=== PATIENT | male | born 2000 | race Caucasian/White ===

== ENCOUNTER 2021-08-23 13:14 | Emergency (ER) | payer OTHER ==
[~2021-08-23] VITALS: Ht 182.9 cm; Wt 90.7 kg
[2021-08-23 13:30] VITALS: BP_SYST 133
[2021-08-23] MEDS ORDERED: IBUP-1969 PO (14:31)
[2021-08-23 15:12] VITALS: BP_SYST 128
== END 2021-08-23 15:15 | disposition home or self-care (01) ==
LOC: SED 13:14
DX: S93.401A Sprain of unspecified ligament of right ankle, initial encounter (principal); F17.210 Nicotine dependence, cigarettes, uncomplicated; Z71.6 Tobacco abuse counseling; W10.8XXA Fall (on) (from) other stairs and steps, initial encounter; Y93.89 Activity, other specified; Y92.89 Other specified places as the place of occurrence of the external cause; Y99.8 Other external cause status
CPT/HCPCS: 99283